=== PATIENT | male | born 1970 | race Caucasian/White ===

== ENCOUNTER 2019-09-04 14:58 | Outpatient (CLI) | payer BC ==
[2019-09-04 18:18] LABS: BASOPHILS % (AUTO) 0.3 %; EOSINOPHILS % (AUTO) 0.2 %; HGB - HEMOGLOBIN 15.9 g/dL (14.0-18.0); LYMPHOCYTES % (AUTO) 21.8 %; MEAN CORPUSCULAR HEMOGLOBIN 33.5 pg (27.0-31.0); MEAN CORPUSCULAR HGB CONC 34.7 g/dL (32.0-36.0); MEAN CORPUSCULAR VOLUME 96.4 fL (80.0-94.0); MEAN PLATELET VOLUME 10.2 fL (7.4-11.4); MONOCYTES # (AUTO) 0.6 10^3/uL (0.0-1.0); MONOCYTES % (AUTO) 6.1 %; NEUTROPHILS # (AUTO) 6.5 10^3/uL (1.5-6.6); NEUTROPHILS % (AUTO) 71.1 %; PLT - PLATELET COUNT 263 10^3/uL (130-450); RED BLOOD COUNT 4.75 10^6/uL (4.70-6.10); RED CELL DISTRIBUTION WIDTH 12.2 % (12.0-15.0); WHITE BLOOD COUNT 9.2 x10^3/uL (4.8-10.8)
[2019-09-04 18:43] LABS: ALBUMIN 4.7 g/dL (3.2-5.5); ALBUMIN/GLOBULIN RATIO 1.7 (1.0-2.2); BILIRUBIN,TOTAL 0.4 mg/dL (0.2-1.0); CALCIUM 9.7 mg/dL (8.5-10.3); TOTAL PROTEIN 7.4 g/dL (6.7-8.2)
== END 2019-09-04 23:59 | disposition home or self-care (01) ==
LOC: LAB.N 14:58
PROVIDERS: ATTEND Nurse Practitioner Gerontology
DX: Z00.00 Encounter for general adult medical examination without abnormal findings (principal); Z79.899 Other long term (current) drug therapy; R20.2 Paresthesia of skin; R58 Hemorrhage, not elsewhere classified
CPT/HCPCS: 36415; 80053; 85025

== ENCOUNTER 2021-01-01 16:30 | Outpatient (CLI) | payer BC ==
--- NOTE | 2021-01-01 18:54 | XRAY Report ---
PROCEDURE: Wrist 4 View RT INDICATIONS: FALL ON R WRIST FROM LADDER TECHNIQUE: 4 views of the wrist were acquired. COMPARISON: None FINDINGS: Comminuted distal radial fracture extends into the radiocarpal joint space. 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 Joint spaces are otherwise preserved. Overlying soft tissues show soft tissue swelling without radiop aque foreign body. Scaphoid view unremarkable. IMPRESSION: Comminuted intra-articular distal radial fracture. Reviewed by: Reagan Giraldo MD on 01/01/2021 5:53 PM [facility]DT Approved by: Reagan Giraldo MD on 01/01/2021 5:53 PM AKDT Station ID: [id number]
== END 2021-01-01 16:31 | disposition home or self-care (01) ==
LOC: DI.N 16:30
PROVIDERS: ATTEND Physician Assistant
DX: S52.571A Other intraarticular fracture of lower end of right radius, initial encounter for closed fracture (principal)

== ENCOUNTER 2021-08-13 08:00 | Outpatient (CLI) | payer BC | END 2021-08-13 23:59 | LOC: LAB.N 08:00 | PROVIDERS: ATTEND Family Medicine | DX: K30 Functional dyspepsia (principal); Z20.822 Contact with and (suspected) exposure to COVID-19 | CPT/HCPCS: 87275; 87276 ==